=== PATIENT | female | born 2000 | race African-American/Black ===

== ENCOUNTER 2025-08-13 18:33 | Emergency (ER) | payer MEDICAID ==
[~2025-08-13] VITALS: Ht 170.2 cm; Wt 67.0 kg
[2025-08-13 18:42] VITALS: O2SAT 100
[2025-08-13] MEDS: SODIUM CHLORIDE 0.9% 1,000 ML IV ONE (19:14)
[2025-08-13] MEDS: LEVETIRACETAM 1000MG PREMIX 100 ML IV ONE (19:15)
[2025-08-13] MEDS ORDERED: KETOROLAC 15MG/ML VIAL IV ONE (19:15)
[2025-08-13 19:27] LABS: BASOPHILS % 0.4 % (0.0-2.0); EOSINOPHILS % 1.4 % (0.0-5.0); HEMATOCRIT. 34.5 % (36.0-48.0); HEMOGLOBIN. 11.6 g/dL (12.0-16.0); LYMPHOCYTES % 33.2 % (20.0-50.0); MEAN PLATELET VOLUME 8.4 fl (7.4-10.4); MONOCYTES % 7.0 % (2.0-8.0); NEUTROPHILS % 58.0 % (40.0-76.0); PLATELET 210 x1000/uL (130-400); RED BLOOD CELL COUNT 3.71 mill/uL (4.2-5.4); RED CELL DISTRIBUTION WIDTH 12.9 % (11.6-14.6)
[2025-08-13 19:42] LABS: CREATININE 0.9 mg/dL (0.6-1.0); UREA NITROGEN BLOOD 7 mg/dL (9-23)
[2025-08-13 20:04] LABS: HCG SCREEN NEGATIVE
[2025-08-13] MEDS: DIAZEPAM 5 MG/ML 2ML SYR IV SCH (20:22)
[2025-08-13 21:33] VITALS: TEMP 37; O2SAT 99
[2025-08-13 21:46] VITALS: BP 115/66; PULSE 67; RESP 18
[2025-08-13] MEDS: KETOROLAC 15MG/ML VIAL IV SCH (21:46)
== END 2025-08-13 21:57 | disposition home or self-care (01) ==
LOC: ER 18:33
DX: R56.9 Unspecified convulsions (principal)
CPT/HCPCS: 80048; 80320; 84703; 85025; 36415; 93005; 96361; 96374; 96375; 99284; J3360; J1885; J7030; J1953; G0480